=== PATIENT | male | born 1970 | race Caucasian/White ===

== ENCOUNTER → 2023-08-16 14:53 | Outpatient (REF) | payer BC, SELFPAY | LOC: RCS 14:53 | PROVIDERS: ATTENDING PHYSICIAN Internal Medicine Cardiovascular Disease; FAMILY PHYSICIAN Family Medicine | DX: I10 Essential (primary) hypertension (principal) | CPT/HCPCS: 93306 ==

== ENCOUNTER → 2023-08-19 07:42 | Outpatient (REF) | payer BC, SELFPAY | LOC: DHCBC/DCA 07:42 | PROVIDERS: ATTENDING PHYSICIAN Internal Medicine Cardiovascular Disease; FAMILY PHYSICIAN Family Medicine | DX: I10 Essential (primary) hypertension (principal); R07.89 Other chest pain | CPT/HCPCS: 78452; 93017; A9500; J2785 ==

== ENCOUNTER → 2023-12-12 07:47 | Outpatient (REF) | payer BC, SELFPAY ==
[2023-12-12 08:35] LABS: Dilantin 10.5 ug/ml (10-20)
[2023-12-12 08:50] LABS: ALT (SGPT) 26 U/L (0-50); AST (SGOT) 25 U/L (17-59); Albumin 4.3 g/dl (3.5-5.0); Alkaline Phosphatase 99 U/L (38-126); Blood Urea Nitrogen 11 mg/dl (9-20); Calcium 9.3 mg/dl (8.4-10.2); Carbon Dioxide 22 mmol/L (22-30); Chloride 106 mmol/L (98-107); Glucose 113 mg/dl (70-99); HDL Cholesterol 59 mg/dl; LDL Cholesterol, Calculated 124 mg/dl; Potassium 4.5 mmol/L (3.5-5.1); Sodium 141 mmol/L (135-145); Total Bilirubin 0.5 mg/dl (0.2-1.3); Total Cholesterol 199 mg/dl (50-199); Total Protein 6.6 g/dl (6.3-8.2); Triglyceride 82 mg/dl (10-149); Very Low Density Lipoprotein 16 mg/dl (0-30); eGFR > 60.00
[2023-12-14 02:53] LABS: PSA Total 0.5 ng/mL (0.0-4.0)
== END ==
LOC: REG 07:47
PROVIDERS: ATTENDING PHYSICIAN Family Medicine
DX: R63.8 Other symptoms and signs concerning food and fluid intake (principal); I10 Essential (primary) hypertension; E66.01 Morbid (severe) obesity due to excess calories; G40.909 Epilepsy, unspecified, not intractable, without status epilepticus
CPT/HCPCS: 36415; 80053; 80061; 80185; 84153; 84154

== ENCOUNTER → 2023-12-16 07:56 | Outpatient (REF) | payer BC, SELFPAY | LOC: MRI 07:56 | PROVIDERS: ATTENDING PHYSICIAN Podiatrist Foot Surgery; FAMILY PHYSICIAN Family Medicine | DX: S86.391A Other injury of muscle(s) and tendon(s) of peroneal muscle group at lower leg level, right leg, initial encounter (principal) | CPT/HCPCS: 73718 ==

== ENCOUNTER → 2024-02-20 12:02 | Outpatient (REF) | payer BC, SELFPAY ==
[2024-02-20 13:47] LABS: ALT (SGPT) 27 U/L (0-50); AST (SGOT) 24 U/L (17-59); Albumin 4.7 g/dl (3.5-5.0); Alkaline Phosphatase 118 U/L (38-126); Direct Bilirubin 0.1 mg/dl (0.0-0.4); Total Bilirubin 0.2 mg/dl (0.2-1.3); Total Protein 7.4 g/dl (6.3-8.2)
== END ==
LOC: REG 12:02
PROVIDERS: ATTENDING PHYSICIAN Podiatrist Foot Surgery; FAMILY PHYSICIAN Family Medicine
DX: I10 Essential (primary) hypertension (principal)
CPT/HCPCS: 36415; 80076

== ENCOUNTER → 2024-04-13 11:34 | Outpatient (REF) | payer BC, SELFPAY ==
[2024-04-13 13:24] LABS: ALT (SGPT) 26 U/L (0-50); AST (SGOT) 25 U/L (17-59); Albumin 4.6 g/dl (3.5-5.0); Alkaline Phosphatase 109 U/L (38-126); Total Bilirubin 0.3 mg/dl (0.2-1.3); Total Protein 7.2 g/dl (6.3-8.2)
== END ==
LOC: REG 11:34
PROVIDERS: ATTENDING PHYSICIAN Podiatrist Foot Surgery; FAMILY PHYSICIAN Family Medicine
DX: I10 Essential (primary) hypertension (principal)
CPT/HCPCS: 36415; 80076

== ENCOUNTER → 2025-02-18 07:54 | Outpatient (REF) | payer BC, SELFPAY ==
[2025-02-18 10:35] LABS: ALT (SGPT) 25 U/L (0-50); AST (SGOT) 22 U/L (17-59); Albumin 4.3 g/dl (3.5-5.0); Alkaline Phosphatase 118 U/L (38-126); Blood Urea Nitrogen 13 mg/dl (9-20); Calcium 9.2 mg/dl (8.4-10.2); Carbon Dioxide 24 mmol/L (22-30); Chloride 106 mmol/L (98-107); Glucose 86 mg/dl (70-99); HDL Cholesterol 52 mg/dl; LDL Cholesterol, Calculated 113 mg/dl; Potassium 4.1 mmol/L (3.5-5.1); Sodium 138 mmol/L (135-145); Total Protein 7.0 g/dl (6.3-8.2); Very Low Density Lipoprotein 23 mg/dl (0-30); eGFR > 60.00
[2025-02-18 10:58] LABS: PSA, Total - Screen 0.50 ng/ml (0.0-4.0)
== END ==
LOC: REG 07:54
PROVIDERS: ATTENDING PHYSICIAN Family Medicine
DX: I10 Essential (primary) hypertension (principal); E66.01 Morbid (severe) obesity due to excess calories; G40.909 Epilepsy, unspecified, not intractable, without status epilepticus; Z68.41 Body mass index [BMI] 40.0-44.9, adult; E66.813 Obesity, class 3
CPT/HCPCS: 36415; 80053; 80061; 80185; G0103